=== PATIENT | female | born 1950 | race Caucasian/White ===

== ENCOUNTER 2024-06-16 08:47 | Day surgery (SDC) | payer MEDICARE ==
[2024-06-16] VITALS (7 sets, daily range): BP systolic 140–160; BP diastolic 53–77; PULSE 72–78; TEMP 97.1–98.3
[~2024-06-16] VITALS: Ht 167.6 cm; Wt 81.8 kg
[~2024-06-16 08:47] MED LIST: COZAAR 50MG50 MG/TAB PO; FLEXERIL5 MG PO; LR 1,000 ML IV SCH; NORVASC 5MG5 MG/TAB PO
[2024-06-16] MEDS ORDERED: Indocyanine Green 12.5 MG in Water For Injection,Sterile 2.5 ML IV ONE (09:30)
[2024-06-16] MEDS ORDERED: GARLIC100 MG PO (10:08)
[2024-06-16] MEDS ORDERED: PHARMASSURE CHE30 MG PO (10:10)
[2024-06-16] MEDS ORDERED: dexAMETHasone 10 MG/ML VIAL ONE (10:11)
[2024-06-16] MEDS ORDERED: VITAMIN D31000 I1 PO (10:11)
[2024-06-16] MEDS ORDERED: B-121000 MCG PO (10:11)
[2024-06-16] MEDS ORDERED: fentaNYL 50 MCG/ML 2 ML VIAL ONE ×2 (10:11→11:11)
[2024-06-16] MEDS ORDERED: Lidocaine PF 2% (20 MG/ML) 5 ML VIAL ONE (10:11)
[2024-06-16] MEDS ORDERED: NS 10 ML IV ONE (10:11)
[2024-06-16] MEDS ORDERED: Ondansetron 4 MG/2 ML VIAL ONE (10:11)
[2024-06-16] MEDS ORDERED: Rocuronium 50 MG/5 ML Multi-Dose VIAL ONE (10:12)
[2024-06-16] MEDS ORDERED: LYSINE1000 MG PO (10:13)
[2024-06-16] MEDS ORDERED: APPLE PECTIN PO (10:14)
[2024-06-16] MEDS ORDERED: ASPI325T6 PO (10:15)
[2024-06-16] MEDS ORDERED: ALEVE 220MG220 MG PO (10:16)
[2024-06-16] MEDS ORDERED: BENADRYL25 M2 PO (10:16)
[2024-06-16] MEDS ORDERED: hydrALAZINE 20 MG/ML 1 ML VIAL IV PRN (10:30)
[2024-06-16] MEDS ORDERED: Ondansetron 4 MG/2 ML VIAL IV PRN ×2 (10:30→12:30)
[2024-06-16] MEDS ORDERED: HYDROmorphone 1 MG/1 ML SYRINGE [PACU/SDC ONLY] IV PRN (10:30)
[2024-06-16] MEDS ORDERED: fentaNYL 50 MCG/ML 1 ML SYRINGE/VIAL [PACU/SDC ONLY] IV PRN (10:30)
[2024-06-16] MEDS ORDERED: Morphine 2 MG/1 ML VIAL [PACU/SDC ONLY] IV PRN (10:30)
[2024-06-16] MEDS ORDERED: hydrALAZINE 20 MG/ML 1 ML VIAL ONE (11:10)
[2024-06-16] MEDS ORDERED: Acetaminophen 325 MG TAB PO PRN (12:30)
[2024-06-16] MEDS ORDERED: Ibuprofen 600 MG TAB PO PRN (12:30)
--- NOTE | 2024-06-16 15:25 | NUR ---
1345 RETURNS TO ROOM 6 PER CART WITH HOB ELEVATED 30 DEGREES. RESP UNLABORED PATIENT DROWSY. AROUSES SPONTANEOUSLY. FAMILIARIZED WITH SURROUNDINGS. VITAL SIGNS OBTAINED. ABD SOFT. LAP INCISIONS X 4 SITES WITHOUT REDNESS, EDEMA OR DRAINAGE. REPORTS MILD DISCOMFORT. 1400 ROOM LIGHTS DIMMED. REST ENCOURAGED 1415 SLEEPS. RESP UNLABORED 1430 AROUSES BRIEFLY 1440 AWAKE, ALERT. HOB ELEVATED 60 DEGREES. PATIENT REPORTS FEELS "A LOT" BETTER NOW. TOLERATES PO WATER AND JUICE WITHOUT NAUSEA. 1455 AWAKE, ALERT. DISCHARGE INSTRUCTIONS REVIEWED. PATIENT VERBALIZES UNDERSTANDING. COPY PROVIDED IN DISCHARGE FOLDER. 1505 SITS ON EDGE OF BED, THEN AMBULATES TO BATHROOM WITH STANDBY ASSIST. VOIDS WITHOUT DIFFICULTY 1515 SITS IN CHAIR AT SIDE OF CART. DRESSES WITH MINIMAL ASSIST FROM NURSE.
== END 2024-06-16 15:25 | disposition home or self-care (01) ==
LOC: SDCO 08:47
DX: K80.10 Calculus of gallbladder with chronic cholecystitis without obstruction (principal); I10 Essential (primary) hypertension; Z79.899 Other long term (current) drug therapy
CPT/HCPCS: J0360; J0690; J0780; J1100; J1170; J2270; J2405; J2704; J3010; J7120